=== PATIENT | male | born 1975 | race Caucasian/White ===

== ENCOUNTER → 2020-11-12 | Day surgery (SDC) | payer OTHER ==
[~2020-11-12] VITALS: Ht 180.3 cm; Wt 101.6 kg
[~2020-11-12] MED LIST: ASPIRIN EC81 MG PO; CARVEDILOL 25MG25 MG PO; CLONAZEPAM 1MG T1 MG PO; COLESTID1 GM PO; COZAAR50 MG PO; Calcium PO; FAMOTIDINE40 MG PO; LEVOTHYROXINE200 MC2 PO; NORCO 5-325 TA1 EACH PO; OMEPRAZOLE40 MG PO; ONDANSETRON ODT8 MG PO; PERCOCET 10-321 EACH PO; PHENERGAN6.25 MG/5 PO; SYNTHROID25 MCG PO; TRELEGY ELLIPT1 EACH INH; VENTOLIN HFA IN18 GM INH
[2020-11-12 09:56] LABS: HCT 33.8 % (42.0-52.0); HGB 10.1 g/dl (13.2-18.0); MCH 23.7 pg (25.0-31.0); MCHC 29.9 g/dL (32.0-36.0); MCV 79.3 fL (78.0-100.0); MPV 9.5 fL (6.0-9.5); RBC 4.26 M/uL (4.70-6.00); RDW 16.5 % (11.5-14.0)
[2020-11-12 10:15] LABS: ALBUMIN 3.5 g/dL (3.4-5.0); BILIRUBIN - TOTAL 0.8 mg/dL (0.2-1.0); BUN/CREAT RATIO (CALC) 8.9 RATIO; CREATININE 0.9 mg/dL (0.67-1.17); GLOBULIN (CALCULATION) 3.9 g/dL; TOTAL PROTEIN 7.4 g/dL (6.4-8.2)
== END | disposition home or self-care (01) ==
LOC: FAS 08:00
PROVIDERS: Surgery
DX: K29.50 Unspecified chronic gastritis without bleeding (principal); K31.9 Disease of stomach and duodenum, unspecified; K21.9 Gastro-esophageal reflux disease without esophagitis; K58.0 Irritable bowel syndrome with diarrhea; I48.91 Unspecified atrial fibrillation; I11.0 Hypertensive heart disease with heart failure; I50.20 Unspecified systolic (congestive) heart failure; I42.9 Cardiomyopathy, unspecified; E89.0 Postprocedural hypothyroidism; F41.9 Anxiety disorder, unspecified; M19.90 Unspecified osteoarthritis, unspecified site; F32.9 Major depressive disorder, single episode, unspecified; E83.51 Hypocalcemia; G47.30 Sleep apnea, unspecified; Z87.891 Personal history of nicotine dependence; Z99.89 Dependence on other enabling machines and devices; Z88.1 Allergy status to other antibiotic agents; Z79.01 Long term (current) use of anticoagulants; Z79.82 Long term (current) use of aspirin; Z79.891 Long term (current) use of opiate analgesic; Z79.899 Other long term (current) drug therapy
CPT/HCPCS: 36415; 76705; 80053; J2250; J2704; J7120

== ENCOUNTER → 2021-01-14 | Day surgery (SDC) | payer OTHER ==
[~2021-01-14] VITALS: Ht 180.3 cm; Wt 120.2 kg
[2021-01-14 09:01] LABS: HCT 35.9 % (42.0-52.0); HGB 10.7 g/dl (13.2-18.0); MCH 23.8 pg (25.0-31.0); MCHC 29.8 g/dL (32.0-36.0); MPV 9.7 fL (6.0-9.5); RBC 4.49 M/uL (4.70-6.00); WBC 6.4 K/uL (4.0-10.5)
[2021-01-14 09:09] LABS: ALBUMIN 3.6 g/dL (3.4-5.0); BILIRUBIN - TOTAL 0.6 mg/dL (0.2-1.0); BUN/CREAT RATIO (CALC) 8.8 RATIO; CREATININE 0.91 mg/dL (0.67-1.17); GLOBULIN (CALCULATION) 3.8 g/dL; POTASSIUM 3.9 mmol/L (3.5-5.1); TOTAL PROTEIN 7.4 g/dL (6.4-8.2)
--- NOTE | 2021-01-14 12:59 | NUR ---
01/14/21 1250: PT EDUCATED ON USE OF INCENTIVE SPIROMETER. VOICES AND DEMONSTRATES UNDERSTANDING. GOOD EFFORT X 10 BREATHS ACHIEVING VOLUMES OF [phone] CC.
== END | disposition home or self-care (01) ==
LOC: FAS 08:03
PROVIDERS: Surgery
DX: K81.1 Chronic cholecystitis (principal); K66.0 Peritoneal adhesions (postprocedural) (postinfection); K73.1 Chronic lobular hepatitis, not elsewhere classified; K75.81 Nonalcoholic steatohepatitis (NASH); K42.0 Umbilical hernia with obstruction, without gangrene; I11.0 Hypertensive heart disease with heart failure; I50.9 Heart failure, unspecified; F41.9 Anxiety disorder, unspecified; M19.90 Unspecified osteoarthritis, unspecified site; E78.00 Pure hypercholesterolemia, unspecified; I42.9 Cardiomyopathy, unspecified; F32.9 Major depressive disorder, single episode, unspecified; E89.0 Postprocedural hypothyroidism; I87.323 Chronic venous hypertension (idiopathic) with inflammation of bilateral lower extremity; K21.9 Gastro-esophageal reflux disease without esophagitis; G47.30 Sleep apnea, unspecified; Z99.89 Dependence on other enabling machines and devices; Z87.891 Personal history of nicotine dependence; Z79.82 Long term (current) use of aspirin; Z79.899 Other long term (current) drug therapy
CPT/HCPCS: 36415; 74300; 80053; C1758; J1170; J2250; J2370; J2405; J2704; J3010; J7120; Q9967